=== PATIENT | male | born 1945 | race Caucasian/White ===

== ENCOUNTER → 2021-04-08 | Outpatient (CLI) | payer MEDICARE ==
[~2021-04-08] MED LIST: ALLERGY PO; AMBIEN10 MG PO; DOXAZOSIN MESYLA4 MG PO; DOXYCYCLINE HY100 M2 PO; EPLERENONE25 MG PO; FINASTERIDE5 MG PO; GLIPIZIDE ER5 MG PO; HYDRALAZINE HC100 MG PO; NORCO 5-325 TA1 EACH PO; NORVASC10 MG PO; OMEPRAZOLE40 MG PO; OMNICEF 300 MG300 MG PO; PHENERGAN W/CO473 M1 PO; PROVENTIL HFA6.7 GM INH; SYNTHROID100 MCG PO; VENTOLIN HFA 66.7 GM INH
== END ==
LOC: NM 10:00
DX: I25.10 Atherosclerotic heart disease of native coronary artery without angina pectoris (principal); R94.39 Abnormal result of other cardiovascular function study
CPT/HCPCS: 78452; 93017; A9502; J2785